=== PATIENT | male | born 1955 | race Caucasian/White ===

== ENCOUNTER → 2020-03-26 | Day surgery (SDC) | payer BC, OTHER ==
[~2020-03-26] MED LIST: ACETAMINOPHEN/CODEINE 300MG - 30MG TAB ONE; B&O 60MG R/S 60 MG SUPP PR ONE; CEFTRIAXONE SOD 1 GM/NS 50 ML 50 ML IV ONE; ETOMIDATE 2 MG/ML 10 ML INJ IV ONE; GENTAMICIN 80MG/NS 100 ML 100 ML IV ONE; HYDRALAZINE HCL 20 MG/ML VIAL ONE; HYDROMORPHONE 1MG/1ML INJ ONE; IOPAMIDOL 300MG/ML 50ML INFUS..BTL IV ONE; LIDOCAINE HCL 2% LOCAL INJ 5 ML SDV VIAL INJ ONE; MORPHINE SULFATE INJ 4 MG/ML INJ 1ML ONE; ONDANSETRON HCL INJ 2MG/ML 2ML 2 MG/ML VIAL ONE; PROPOFOL IV EMULSION 10 MG/ML 20 ML VIAL ONE; SEVOFLURANE INHAL SOLN 250 ML PEN BTL ONE; TESTOSTERONE5 GM TOP
[2020-03-26 14:15] VITALS: BP 155/96
--- NOTE | 2020-04-12 06:26 | Operative Report ---
DATE OF PROCEDURE: 03/26/2020 SURGEON: Alcon Leung MD PREOPERATIVE DIAGNOSES: 1. Obstructive benign prostatic hypertrophy. 2. Mild renal insufficiency. POSTOPERATIVE DIAGNOSES: 1. Obstructive benign prostatic hypertrophy. 2. Mild renal insufficiency. OPERATIONS PERFORMED: 1. Cystourethroscopy with bilateral ureteral catheterization and retrograde ureteropyelography (separate procedure was performed for the renal insufficiency). 2. Interpretation of retrograde ureteropyelography. 3. Supervision of fluoroscopy, no radiologist present. 4. Cystourethroscopy with implantation of 6 UroLift implants. ANESTHESIA: General. COMPLICATIONS: None. CLINICAL SUMMARY: Isma Simpson is a 65-year-old man with a longstanding urological history. He has obstructive BPH and mild renal insufficiency. He is brought for the above procedures. He is aware of the risks of bleeding, infection, injury to adjacent structures, need for additional procedures, and elected to proceed. OPERATIVE PROCEDURE IN DETAIL: Informed consent was verified. Isma Simpson was properly identified, taken to the operating room, placed on the cystoscopy table in supine position. Anesthesia was uneventfully begun. The patient was then carefully gently repositioned in dorsal lithotomy position with all pressure points well padded. His genitalia were prepared and draped in the usual sterile fashion. The cystoscope sheath with the visual obturator in place was atraumatically inserted into the patient's urethra, it was guided unremarkable distal urethra through normal sphincteric region, through the prostate bed, which was significant for visually obstructing BPH with kissing lateral lobes. We entered the patient's bladder. Panendoscopy revealed trabeculations, but no tumors, no stones, and no diverticula. No suspicious mucosal lesions were identified. An 8-Bolivian catheter was used to cannulate each ureter and retrograde ureteral pyelograms were performed. Interpretation of retrograde ureteropyelography contrast was instilled in retrograde fashion bilaterally. There were no tumors. There were no stones. There were no diverticula. Unobstructed drainage was observed bilaterally fluoroscopically. We removed the cystoscope sheath. We reintroduced the UroLift cystoscope sheath under direct vision. We then deployed the UroLift implants. We deployed 2 implants anterolaterally at the level of the verumontanum. We deployed two implants 1.5 cm distal to the bladder neck. This resulted in residual tissue in between the 2 sets of clips. Therefore, we placed 2 additional UroLift implants on either side midway between the 2 sets of clips. This resulted in a continuous anterior channel. The patient's bladder was drained. The belladonna and opium suppository was placed revealing a 45 g prostate that is smooth, nonfluctuant, without any nodules. The patient was then uneventfully reversed from anesthesia and taken to recovery room in stable condition. There were no complications to the procedure. The patient tolerated the procedure well. Estimated blood loss was minimal. Explicit postop instructions were given. We will plan to follow this patient up for uroflowmetry and bladder ultrasonography in the office in about a month. MD FARIBA Ruth/KASIA /[id number]
== END | disposition home or self-care (01) ==
LOC: OR 08:38
PROVIDERS: ATTEND Urology
DX: N40.0 Benign prostatic hyperplasia without lower urinary tract symptoms (principal); N13.8 Other obstructive and reflux uropathy; N32.89 Other specified disorders of bladder; N18.9 Chronic kidney disease, unspecified; K44.9 Diaphragmatic hernia without obstruction or gangrene; K76.0 Fatty (change of) liver, not elsewhere classified; F41.9 Anxiety disorder, unspecified; Z01.810 Encounter for preprocedural cardiovascular examination; Z01.812 Encounter for preprocedural laboratory examination; Z11.59 Encounter for screening for other viral diseases; Z85.47 Personal history of malignant neoplasm of testis
CPT/HCPCS: 52005; C9740; 74420; 93005; C1758; C1769; J0360; J0696; J1170; J1580; J2001; J2270; J2405; L8699; U0002

== ENCOUNTER → 2021-10-19 | Outpatient (CLI) | payer MEDICARE ==
[~2021-10-19] MED LIST changes: -ACETAMINOPHEN/CODEINE 300MG - 30MG TAB ONE; -B&O 60MG R/S 60 MG SUPP PR ONE; -CEFTRIAXONE SOD 1 GM/NS 50 ML 50 ML IV ONE; -ETOMIDATE 2 MG/ML 10 ML INJ IV ONE; -GENTAMICIN 80MG/NS 100 ML 100 ML IV ONE; -HYDRALAZINE HCL 20 MG/ML VIAL ONE; -HYDROMORPHONE 1MG/1ML INJ ONE; -IOPAMIDOL 300MG/ML 50ML INFUS..BTL IV ONE; +IOPAMIDOL 370 MG/ML 200 ML INFUS..BTL INJ ONE; -LIDOCAINE HCL 2% LOCAL INJ 5 ML SDV VIAL INJ ONE; -MORPHINE SULFATE INJ 4 MG/ML INJ 1ML ONE; -ONDANSETRON HCL INJ 2MG/ML 2ML 2 MG/ML VIAL ONE; -PROPOFOL IV EMULSION 10 MG/ML 20 ML VIAL ONE; -SEVOFLURANE INHAL SOLN 250 ML PEN BTL ONE; +SODIUM CHLORIDE 0.9% 50ML 50 ML ONE
[2021-10-19 13:48] LABS: CREATININE, SERUM 1.09 mg/dL (0.72-1.25)
== END ==
LOC: CT 13:11
PROVIDERS: ATTEND Urology
DX: C62.12 Malignant neoplasm of descended left testis (principal)
CPT/HCPCS: 36415; 74177; 82565; 84520; Q9967